=== PATIENT | male | born 1995 | race Caucasian/White ===

== ENCOUNTER 2018-03-14 13:44 | Emergency (ER) | payer OTHER ==
[~2018-03-14] VITALS: Ht 177.8 cm; Wt 106.6 kg
[2018-03-14 13:49] VITALS: BP 108/70
--- NOTE | 2018-03-14 14:28 | ED GENERAL ADULT ---
History of Present Illness General Chief Complaint: Low Back Pain/Injury Stated Complaint: BACK PAIN X2 WEEKS Source: patient Exam Limitations: no limitations Vital Signs & Intake/Output Vital Signs & Intake/Output Vital Signs Date Time Temp Pulse Resp B/P B/P Pulse O2 O2 Flow FiO2 Mean Ox Delivery Rate 03/14 1349 97.1 80 20 108/70 97 Room Air Allergies Coded Allergies: No Known Allergies (03/14/18) Reconcile Medications Cyclobenzaprine HCl 10 MG TABLET 1 TAB PO TID PRN pain Hydrocodone/Acetaminophen ([place] 5-325 Tablet) 5 MG-325 MG TABLET 1-2 TAB PO Q4-6 PRN PRN pain Methylprednisolone. (Medrol) 4 MG TAB.DS.PK 1 DP PO AD PRN back pain 6 on day 1 then reduce by one tablet daily until gone Triage Note: PT C/O LOWER BACK PAIN X 2 WEEKS, UNKNOWN IF IT WAS A WORK INJURY BECAUSE HE LIFTS HEAVY ITEMS AT WORK. UNABLE TO SIT FOR VERY LONG. PAIN IS LEFT LOWER BACK. DENIES NUMB/TINGLING. TOOK IBUPROFEN WITH LITTLE RELIEF Triage Nurses Notes Reviewed? yes Onset: Abrupt Duration: week(s): (2), constant, continues in ED, getting worse Timing: single episode today Injury Environment: home Severity: moderate, severe Severity Numbers: 7 No Modifying Factors: none HPI: 22-year-old male with no past medical history presents for evaluation of back pain. Patient reports pain is been present for 2 weeks and getting worse. There is no trauma or triggering event. Pain is located on both sides of the lower back related to the bilateral buttocks and bilateral upper legs. The pain is worse with movement and certain positioning. Is no numbness or tingling or bowel bladder dysfunction no fever no belly pain. He is been taking ibuprofen without any improvement. He has had back pain in the past but nothing this severe and persistent. (Flakito Trevino) Past History Travel History Traveled to [place] past 21 day No Medical History Any Pertinent Medical History? see below for history Surgical History Surgical History: non-contributory Psychosocial History What is your primary language [place]ijani Tobacco Use: Never used ETOH Use: occasional use Illicit Drug Use: denies illicit drug use Family History Hx Contributory? No (Flakito Trevino) Review of Systems Review of Systems Constitutional: Reports: no symptoms. EENTM: Reports: no symptoms. Respiratory: Reports: no symptoms. Cardiovascular: Reports: no symptoms. GI: Reports: no symptoms. Genitourinary: Reports: no symptoms. Musculoskeletal: Reports: see HPI, back pain, muscle pain, muscle stiffness. Skin: Reports: no symptoms. Neurological/Psychological: Reports: no symptoms. Hematologic/Endocrine: Reports: no symptoms. Immunologic/Allergic: Reports: no symptoms. All Other Systems: Reviewed and Negative (Flakito Trevino) Physical Exam Physical Exam General Appearance: well developed/nourished, no apparent distress, alert, awake , obese Head: atraumatic, normal appearance Eyes: Bilateral: normal appearance, PERRL, EOMI. Ears, Nose, Throat: hearing grossly normal Neck: normal inspection, supple, full range of motion Respiratory: normal breath sounds, chest non-tender, no respiratory distress, lungs clear Cardiovascular: regular rate/rhythm, normal peripheral pulses Peripheral Pulses: 2+ radial (R), 2+ radial (L) Gastrointestinal: soft, non-tender Back: normal inspection, normal range of motion, no vertebral tenderness, lumbar paraspinal muscles and palpation bilaterally no midline tenderness to step-off deformities Extremities: normal inspection, normal range of motion, no edema, straight leg raised (positive bilaterally) Neurologic/Psych: no motor/sensory deficits, awake, alert, oriented x 3, normal gait, normal mood/affect Reflexes: 2+: knee (R), knee (L). Skin: intact, normal color, warm/dry Lymphatic: no anterior cervical lazaro Core Measures ACS in differential dx? No CVA/TIA Diagnosis: No Sepsis Present: No Sepsis Focused Exam Completed? No (Flakito Trevino) Progress Differential Diagnoses I considered the following diagnoses in my evaluation of the patient: [Muscle strain, sciatica, herniated disc, cauda equina, epidural abscess] Plan of Care: Patient is here with low back pain for 2 weeks. There is no trauma or triggering event. He is neurologically intact. No clinical signs or symptoms of cauda equina. No bony point tenderness or trauma to suggest fracture. Patient is medicated with Flexeril and Toradol and is feeling somewhat better. He'll be discharged home with a prescription for Medrol Dosepak and Flexeril and [place] for severe pain. Advised patient to rest avoid excessive heavy lifting bending or physical activity. Follow-up with primary care doctor for recheck. Discussed return precautions. Patient agrees the plan Initial ED EKG: none (Flakito Trevino) Departure Departure Disposition: HOME OR SELF CARE Condition: Stable Clinical Impression Primary Impression: Sciatica Qualifiers: Laterality: bilateral Qualified Codes: M54.31 - Sciatica, right side; M54.32 - Sciatica, left side Referrals: Ovi KEN,Jason Ashley Patient Has No Primary Care Dr (PCP/Family) Additional Instructions: Rest, avoid heavy lifting bending or physical activity. Take Medrol Dosepak for the full course. Apply heating pad. Continue ibuprofen 800 mg every 8 hours with food as needed for pain. Cyclobenzaprine is a muscle relaxer that can also be used every 8 hours as needed [place] for severe pain only this may cause drowsiness. Make a follow-up with her primary care doctor as soon as possible to review all results of today's visit. Monitor symptoms closely return with any concerns. Departure Forms: Customer Survey General Discharge Information Prescriptions: Current Visit Scripts Hydrocodone/Acetaminophen ([place] 5-325 Tablet) 1-2 TAB PO Q4-6 PRN PRN pain #10 TAB Methylprednisolone. (Medrol) 1 DP PO AD PRN back pain #1 DP 6 on day 1 then reduce by one tablet daily until gone Cyclobenzaprine HCl 1 TAB PO TID PRN pain #30 TAB (Flakito Trevino) PA/RENAL DIALYSIS RN Co-Sign Statement Statement: ED Attending supervision documentation- [] I saw and evaluated the patient. I have also reviewed all the pertinent lab results and diagnostic results. I agree with the findings and the plan of care as documented in the PA's/RENAL DIALYSIS RN's documentation. [X] I have reviewed the ED Record and agree with the PA's/RENAL DIALYSIS RN's documentation. [] Additions or exceptions (if any) to the PAs/RENAL DIALYSIS RN's note and plan are summarized below: [] (Jose Carlos KEN,Nahun Rice) Critical Care Note Critical Care Note Critical Care Time: non-applicable (Flakito Trevino)
[2018-03-14] MEDS ORDERED: CYCLOBENZAPRINE10 M1 PO (14:53)
[2018-03-14] MEDS ORDERED: MEDROL4 M2 PO (14:53)
[2018-03-14] MEDS ORDERED: NORCO 5-325 TA1 EACH PO (14:53)
== END 2018-03-14 15:01 ==
LOC: ERH 13:44
DX: M54.40 Lumbago with sciatica, unspecified side (principal)
CPT/HCPCS: 96372; J1885